=== PATIENT | female | born 1990 | race African-American/Black ===

== ENCOUNTER 2020-01-21 15:59 | Emergency (ER) | payer SELFPAY ==
[~2020-01-21] VITALS: Ht 154.9 cm; Wt 97.0 kg
[2020-01-21 16:05] VITALS: BP 115/63
[2020-01-21] MEDS ORDERED: ACETAMINOPHEN 500 MG TABLET PO ONE (16:30)
[2020-01-21] MEDS ORDERED: AMOX500C PO (16:53)
--- NOTE | 2020-01-21 16:53 | PHYS DOC ---
Past History Past Medical History: No Pertinent History Past Surgical History: No Surgical History Alcohol Use: None Adult General Chief Complaint Chief Complaint: FLU SYMPTOM HPI HPI Patient is a 29-year-old female who presents to the emergency department for evaluation of 24 hours of a sore throat on the right. She has had fevers as well. She reports a mild myalgias, no nasal congestion or cough. She has not had any voice changes. Swallowing worsens her pain. There are no alleviating factors to her symptoms. Review of Systems Review of Systems Constitutional: Denies fever or chills [] Eyes: Denies change in visual acuity, redness, or eye pain [] HENT: Denies nasal congestion or otalgia [] Respiratory: Denies cough or shortness of breath [] Musculoskeletal: Denies back pain or joint pain [] Integument: Denies rash or skin lesions [] Neurologic: Denies headache, focal weakness or sensory changes [] Current Medications Current Medications Current Medications Medications (Trade) Dose Ordered Sig/Sergio Start Time Stop Time Status Last Admin Dose Admin Acetaminophen (Tylenol) 1,000 mg 1X ONCE 01/21/20 16:30 01/21/20 16:31 DC 01/21/20 16:25 1,000 MG Allergies Allergies Allergies Coded Allergies Type Severity Reaction Last Updated Verified latex Allergy Unknown 01/21/20 Yes Physical Exam Physical Exam PHYSICAL EXAM: CONSTITUTIONAL: Well developed, well nourished HEAD: normocephalic, atraumatic EENT: PERRL, EOMI. Conjunctivae normal color, sclerae non-icteric; moist mucous membranes. Tympanic membranes are normal bilaterally. The oropharynx is mildly erythematous. There is no tonsillar enlargement, or uvular deviation. There is mild tonsillar exudate right greater than left. There is mildly tender submandibular lymphadenopathy. The larynx is nontender. NECK: Supple, non-tender; no meningismus. LUNGS: Lungs CTA, breathing even and unlabored. Normal air movement. HEART: Regular rate and rhythm, no murmur CHEST: No deformity; non-tender ABDOMEN: The abdomen is soft, and non-tender, no masses or bruits. EXTREM: Normal ROM; no deformity, no calf tenderness. Normal pulses palpable in all extremities. There is no pedal edema. SKIN: No rash; no diaphoresis NEURO: Alert; normal speech and cognition; CN's grossly intact; strength grossly intact without focal deficit. BACK: No CVA TTP. Current Patient Data Vital Signs Vital Signs Date Time Temp Pulse Resp B/P (MAP) Pulse Ox O2 Delivery O2 Flow Rate FiO2 01/21/20 16:05 102.2 108 20 115/63 (80) 99 Room Air EKG EKG [] Radiology/Procedures Radiology/Procedures [] Course & Med Decision Making Course & Med Decision Making Pertinent Labs reviewed. (See chart for details) []Rapid strep positive. Influenza negative Dragon Disclaimer Dragon Disclaimer This electronic medical record was generated, in whole or in part, using a voice recognition dictation system. Departure Departure: Impression: Primary Impression: Strep pharyngitis Disposition: HOME, SELF-CARE Condition: STABLE Referrals: PCP,NO (PCP) Patient Instructions: Strep Throat Scripts Amoxicillin (AMOXICILLIN) 500 Mg Capsule 1 CAP PO TID for -, #30 CAP Prov: JEAN BRADY MD 01/21/20 JEAN BRADY MD Jan 21, 2020 16:53
[2020-01-21 16:59] LABS: INFLUENZA A PATIENT NEGATIVE (NEGATIVE); INFLUENZA B PATIENT NEGATIVE (NEGATIVE)
== END 2020-01-21 17:07 | disposition home or self-care (01) ==
LOC: ER 15:59
DX: J02.0 Streptococcal pharyngitis (principal); B95.0 Streptococcus, group A, as the cause of diseases classified elsewhere; Z91.040 Latex allergy status
CPT/HCPCS: 87804; 87880; 99283

== ENCOUNTER 2020-09-29 12:37 | Emergency (ER) | payer SELFPAY ==
[~2020-09-29] VITALS: Ht 154.9 cm; Wt 100.6 kg
[~2020-09-29 12:37] MED LIST: AMOX500C PO
[2020-09-29] MEDS ORDERED: IV NORMAL SALINE 1,000ML 1,000 ML IV ONE (13:30)
--- NOTE | 2020-09-29 13:38 | PHYS DOC ---
Past History Past Medical History: No Pertinent History Past Surgical History: No Surgical History Smoking: Non-smoker Alcohol Use: None Drug Use: None General Adult EDM: Chief Complaint: NEURO SYMPTOMS/DEFICITS HPI: HPI: Patient is a 29 year old Female who presents with numbness/tingling in hands and feet. Patient states that symptoms began a month ago and were intermittent. Patient states that symptoms have increased yesterday in intensity and are now constant. 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 Patient states that she has also been experiencing increased thirst, urinary frequency without dysuria and hematuria, 30lb weight gain in 6 months, always cold, and dry skin. Patient states she has had no changes in diet or any recent infections or sick or COVID contacts. Patient also states she has intermittent upper and lower back pain which she attributes to work. Patient is not concerned for at this time. LMP was 09/02/20. Review of Systems: Review of Systems: Constitutional: Denies fever or chills Eyes: Denies redness or eye pain HENT: Denies nasal congestion or sore throat Respiratory: Denies cough or shortness of breath Cardiovascular: Denies chest pain or palpitations GI: Admits constipation. Denies abdominal pain, nausea, or vomiting : Denies dysuria or hematuria Musculoskeletal: Admits back pain or joint pain Integument: Admits dry skin. Denies rash or skin lesions Neurologic: Denies headache, focal weakness or sensory changes Complete systems were reviewed and found to be within normal limits, except as documented in this note. Current Medications: Current Meds: Current Medications Medications (Trade) Dose Ordered Sig/[facility] Start Time Stop Time Status Last Admin Dose Admin Sodium Chloride 1,000 ml @ 1,000 mls/hr 1X ONCE 09/29/20 13:30 09/29/20 14:29 Allergies: Allergies: Allergies Coded Allergies Type Severity Reaction Last Updated Verified latex Allergy Unknown 09/29/20 Yes Physical Exam: PE: Constitutional: Well developed, well nourished, no acute distress, non-toxic appearance HENT: Normocephalic, atraumatic Eyes: PERRL, EOMI, conjunctiva normal, no discharge Neck: Normal range of motion, no tenderness, supple Lungs & Thorax: No respiratory distress, equal chest rise and fall Abdomen: Soft, no tenderness Skin: Warm, dry, no erythema, no rash Back: No tenderness, no CVA tenderness Extremities: No tenderness, ROM intact, no edema Neurologic: Alert and oriented X 3, normal motor function, normal sensory function, no focal deficits noted Psychologic: Affect normal, judgment normal Current Patient Data: Vital Signs: Vital Signs Date Time Temp Pulse Resp B/P (MAP) Pulse Ox O2 Delivery O2 Flow Rate FiO2 09/29/20 12:37 98.8 84 18 107/74 (85) 98 Room Air EKG: EKG: Performed on 09/29/2020 at 14:05:03. Read at 14:05. HR 70BPM Intervals - NH 142ms, QRS 82ms, QT 386ms, QTc 420ms Interpretation: Sinus rhythm with inverted in T-waves in Lead III and Lead V1 No past EKGs for comparison Course & Med Decision Making: Course & Med Decision Making Pertinent Labs and Imaging studies reviewed. (See chart for details) Patient stable for discharge with outpatient follow-up with PCP. Discussed findings and plan with patient, who acknowledges understanding and agreement. Timbo Disclaimer: Timbo Disclaimer: This electronic medical record was generated, in whole or in part, using a voice recognition dictation system. Departure Departure: Impression: Primary Impression: Paresthesia of bilateral legs Disposition: 01 DC HOME SELF CARE/HOMELESS Condition: STABLE Referrals: PCP,HUY (PCP) Patient Instructions: Paresthesia, [id number] Additional Instructions: Please follow with your family physician regarding your symptoms. We sent your thyroid studies which are not able to result today. Please follow up with your doctor regarding their values. HEDY MANRIQUE DO Sep 29, 2020 13:38
[2020-09-29 13:52] LABS: BASO # 0.1 x10^3/uL (0.0-0.2); BASO % 1 % (0-3); EOS # 0.1 x10^3/uL (0.0-0.7); EOS % 2 % (0-3); HEMATOCRIT 37.8 % (36.0-47.0); HEMOGLOBIN 12.3 g/dL (12.0-15.5); LYMPH # 1.9 x10^3/uL (1.0-4.8); LYMPH % 37 % (24-48); MEAN CORPUSCULAR HEMOGLOBIN 28 pg (25-35); MEAN CORPUSCULAR HGB CONC 33 g/dL (31-37); MEAN CORPUSCULAR VOLUME 87 fL (79-100); MONO # 0.4 x10^3/uL (0.0-1.1); MONO % 9 % (0-9); NEUT # 2.6 x10^3uL (1.8-7.7); NEUT % 51 % (31-73); PLATELET COUNT 224 x10^3/uL (140-400); RED BLOOD COUNT 4.34 x10^6/uL (3.50-5.40); RED CELL DISTRIBUTION WIDTH 14.2 % (11.5-14.5); WHITE BLOOD COUNT 5.1 x10^3/uL (4.0-11.0)
[2020-09-29 14:01] LABS: BARBITURATES NEG (NEG); BENZODIAZEPINES NEG (NEG); CANNABINOIDS NEG (NEG); COCAINE NEG (NEG); METHADONE NEG (NEG); OPIATES NEG (NEG); PHENCYCLIDINE NEG (NEG)
[2020-09-29 14:02] LABS: AMPHETAMINE/METHAMPHETAMINE NEG (NEG)
--- NOTE | 2020-09-29 14:09 | EKG ---
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
[2020-09-29 14:13] LABS: CALCIUM 8.8 mg/dL (8.5-10.1); CREATININE 0.9 mg/dL (0.6-1.0); GFR 89.6; POTASSIUM 4.1 mmol/L (3.5-5.1)
[2020-09-29 14:14] LABS: COLOR,URINE YELLOW
[2020-09-29 14:15] LABS: BILIRUBIN,URINE NEG (NEG); CLARITY,URINE CLOUDY; GLUCOSE,URINE NEG (NEG); NITRITE,URINE NEG (NEG); RBC,URINE OCC /HPF (0-2); UROBILINOGEN,URINE 0.2 mg/dL (0.2 mg/dL)
[2020-09-29 14:16] LABS: BACTERIA,URINE FEW /HPF (0-FEW); SQUAMOUS EPITHELIAL CELL,UR MOD /LPF
[2020-09-29 14:29] LABS: ALBUMIN 3.5 g/dL (3.4-5.0); ALBUMIN/GLOBULIN RATIO 0.8 (1.0-1.7); MAGNESIUM 2.2 mg/dL (1.8-2.4); TOTAL BILIRUBIN 0.3 mg/dL (0.2-1.0); TOTAL PROTEIN 7.8 g/dL (6.4-8.2)
[2020-09-29 14:47] VITALS: BP 127/68
== END 2020-09-29 14:50 | disposition home or self-care (01) ==
LOC: ER 12:37
DX: R20.2 Paresthesia of skin (principal); M54.5 Low back pain; M54.6 Pain in thoracic spine; K59.00 Constipation, unspecified; Z91.040 Latex allergy status
CPT/HCPCS: 36415; 80053; 80307; 81001; 81025; 82553; 83735; 84436; 84443; 84481; 84484; 85025; 87077; 87086; 93005; 96360; 99284; G0480; J7030